=== PATIENT | male | born 1980 | race Caucasian/White ===

== ENCOUNTER 2023-01-30 22:49 | Emergency (ER) | payer OTHER, MEDICAID ==
[~2023-01-30] VITALS: Ht 185.4 cm; Wt 120.2 kg
[2023-01-30 23:03] VITALS: BP_SYST 141; PULSE 100; RESP 17; TEMP 98.3; O2SAT 96
[2023-01-30] MEDS ORDERED: KETOROLAC TROMETHAMINE 60 MG/2 ML VIAL IM ONE (23:30)
[2023-01-30] MEDS ORDERED: HYDR-3927 PO (23:40)
[2023-01-30] MEDS ORDERED: IBUP-1971 PO (23:40)
[2023-01-30 23:50] VITALS: BP_SYST 155; PULSE 95; RESP 17; TEMP 98.3; O2SAT 96
== END 2023-01-30 23:50 | disposition home or self-care (01) ==
LOC: SED 22:49
DX: S13.4XXA Sprain of ligaments of cervical spine, initial encounter (principal); M54.50 Low back pain, unspecified; I10 Essential (primary) hypertension; Z79.899 Other long term (current) drug therapy; V49.50XA Passenger injured in collision with unspecified motor vehicles in traffic accident, initial encounter; Y93.89 Activity, other specified; Y92.89 Other specified places as the place of occurrence of the external cause; Y99.8 Other external cause status
CPT/HCPCS: 99283; 96372; J1885